=== PATIENT | male | born 1970 | race Caucasian/White ===

== ENCOUNTER 2025-04-14 22:47 | Emergency (ER) | payer MEDICAID, SELFPAY ==
[2025-04-14 22:55] VITALS: BP 158/78; PULSE 64; RESP 18; TEMP 36.6; O2SAT 97; BMI 31.1
--- NOTE | 2025-04-14 22:55 | ED.SKABFB ---
HPI - Skin/Abscess/Foreign Bdy General Chief complaint: Extremity Injury, Lower Stated complaint: warm red painful line going up rt calf Time Seen by Provider: 04/14/25 23:51 Source: patient, RN notes reviewed and old records reviewed Mode of arrival: ambulatory Limitations: no limitations History of Present Illness ED Provider: Jose ZHU narrative: 55-year-old male presents for evaluation of redness, pain and swelling to the right lower extremity. Patient reports that while watching football tonight he accidentally bumped his right mid calf in his left foot and felt pain pain When he went to look at the area he had a streaking red line going up his leg. He is concerned because he has a history of DVT about 5 years ago. He is not currently anticoagulated. 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 Denies any chest pain, shortness of breath, recent travel He has no other complaints or concerns at the time Related Data Previous Rx's ?Medication ?Instructions ?Recorded apixaban 5 mg (74 tabs) tablets in 5 mg PO BID #74 ea 04/15/25 a dose pack (Eliquis DVT-PE Treat 30D Start) Allergies Allergy/AdvReac Type Severity Reaction Status Date / Time bee pollen (BEE STINGS) Allergy Severe STOP Verified 04/14/25 22:56 BREATHING, THROAT SWELLING. Iodinated Contrast Media Allergy Severe Swelling Verified 04/14/25 23:40 (Contrast Dye) Review of Systems Constitutional: Constitutional: Denies body ache(s), Denies chills, Denies fatigue and Denies fever(s) Eyes: Eyes: Denies blurry vision ENT: Denies vertigo and Denies dizziness Cardiovascular: Cardiovascular: Denies chest pain and Denies dyspnea on exertion Respiratory: Respiratory: Denies cough and Denies dyspnea on exertion Gastrointestinal: Gastrointestinal: Denies abdominal pain, Denies nausea and Denies vomiting Musculoskeletal: Musculoskeletal: Denies back pain Integumentary/Breasts: Skin/Breast: Reports erythema Neurologic: Denies vertigo and Denies dizziness Psychiatric: Psychiatric: Denies anxiety Endocrine: Endocrine: Denies fatigue PMFSH Social History Social History Smoked in Last 30 Days: Yes Use of substances other than those prescribed or required for medical reasons: No Advance Directives: No Advance Directives Information Provided: Yes Do you have a plan to hurt others: No Plan Physical Exam Vital Signs: Vital Signs: Last Vital Signs Temp 97.8 F 04/15/25 00:53 Pulse 58 04/15/25 00:53 Resp 18 04/15/25 00:53 BP 140/86 H 04/15/25 00:53 Pulse Ox 97 04/15/25 00:53 O2 Del Method Room Air 04/15/25 00:53 BMI result Body Mass Index 31.1 Const: General: healthy appearing, comfortable, no acute distress, alert and awake Nutritional Appearance: well nourished Orientation/consciousness: patient oriented x3 HEENT: Head: Yes normocephalic and Yes atraumatic Eyes: Eyelids: Yes eyelids normal Conjunctivae: conjunctivae normal Sclerae: sclerae normal Corneas: corneas normal Pupils: Equal, round and reactive pupils present EOM: EOMs intact bilaterally Neck: Neck: Yes full ROM Resp: Effort & Inspection: normal respiratory effort, able to speak in complete sentences and not labored Skin: General skin exam: elasticity normal Neuro: General: patient oriented x3 Cranial nerves: Yes Equal, round and reactive pupils present and Yes Bilaterally intact EOM present Cognition (Neuro): normal cognition Extrem: Other: There is streaking erythema to the medial aspect of the right lower leg, about 8 cm in length. Terminating about 4 cm distal to the knee. This area is tender to palpation. Negative Homans sign Course Course Course Narrative: 55 yo male with PMH of remote DVTs/PE not on medications for 5 years related to driving and immobility here with c/o R leg ropy cord and redness R inner calf starts at scab. Denies IVDA, CP/SOB. At this time I would obtain US of RLE at bedside and ddimer suspect superficial thrombophlebitis. this is a RAPID medical screening exam the rest of the history and physical exam is to be done by the main provider. ALBAN 04/14/25 1056am Medications Administered Discontinued Medications Generic Name Dose Route Start Last Admin Trade Name Freq PRN Reason Stop Dose Admin Apixaban 10 mg 04/15/25 00:40 04/15/25 00:49 Apixaban 5 Mg Tablet PO 04/15/25 00:41 10 mg ONCE ONE Administration Medical Decision Making Medical Decision Making [facility] Narrative: 55-year-old male with a history of DVT presents for evaluation of redness, pain swelling to the right lower extremity. Point of care ultrasound was obtained with my attending, Dr. Gomez which revealed a superficial thrombophlebitis in the region of the greater saphenous vein. This was about 8 cm in length and terminating approximately 3 cm from the saphenous popliteal junction. Due to the patient's history of DVT, the length of the thrombophlebitis and naproxen may need to the deep vein system. The decision was made to start the patient on Eliquis for anticoagulation. An outpatient ultrasound ordered was placed for the patient to have a comprehensive ultrasound tomorrow morning. A referral was also placed to vascular surgery. The patient has no contraindications to anticoagulation Differential Diagnosis Differential Diagnoses: The differential diagnosis associated with the presentation includes Superficial thrombophlebitis DVT Lymphangitis Cellulitis Lab Data MDM Lab Attestation statement: I reviewed the patient's lab results. No leukocytosis, the patient has a mild microcytic anemia with a hemoglobin of 13.2 and hematocrit of 38.1. He denies any history of GI bleeding. No significant chemistry abnormalities 04/14/25 23:26 04/14/25 23:26 Labs: Lab Results 04/14/25 Range/Units 23:26 WBC 6.5 (4.8-10.8) X10*3/uL RBC 4.87 (4.60-5.80) X10*6/uL Hgb 13.2 L (14.0-18.0) g/dl Hct 38.1 L (42.0-52.0) % MCV 78.2 L (80.0-98.0) fL MCH 27.1 (27.0-33.0) pg MCHC 34.6 (31.0-36.0) g/dl RDW 13.5 (11.0-16.0) % Plt Count 165 (160-400) X10*3/uL MPV 9.5 (9.4-12.4) fL Immature Gran % (Auto) 0.3 (0.0-0.4) % Neut % (Auto) 52.0 (45-73) % Lymph % (Auto) 34.7 (20-40) % [place] % (Auto) 9.3 (2-11) % Eos % (Auto) 2.6 (0-4) % Baso % (Auto) 1.1 (0-2) % Lymph # (Auto) 2.3 (1.2-4.9) X10*3/uL [place] # (Auto) 0.6 (0.1-1.2) X10*3/uL Eos # (Auto) 0.2 (0.0-0.4) X10*3/uL Baso # (Auto) 0.1 (0.0-0.2) X10*3/uL Abs Immat Gran (auto) 0.02 (0.00-0.03) X10*3/uL Absolute Neuts (auto) 3.4 (2.0-8.3) x10*3/uL Absolute Nucleated RBC 0.000 (0.0-0.012) X10*3/uL Nucleated RBC % (auto) 0.0 (0.0-0.2) /100WBC D-Dimer High Sensitivty 371 NG/ML Sodium 136 (135-145) mmol/L Potassium 4.4 (3.3-5.1) mmol/L Chloride 104 (96-108) mmol/L Carbon Dioxide 23 (22-29) mmol/L Anion Gap 13 (12-20) BUN 17 H (9-16) mg/dL Creatinine 1.00 (0.5-1.4) mg/dL Estim Creat Clear Calc 105.8 Estimated GFR > 60 Random Glucose 117 H (60-115) mg/dL Calcium 9.3 (8.4-10.2) mg/dL Procedures Procedure Narrative Procedure Narrative: .[facility] ULTRASOUND INTERPRETATION-Limited Point of Care Venous (DVT)? The study reveals:? Impression: NO EVIDENCE OF DVT. I RECOMMENDED TO THE PATIENT? REPEAT ULTRASOUND IN ONE WEEK IF SYMPTOMS PERSIST. Indication: phlebitis of R LE Laterality: ? [X] RIGHT? Common Femoral:? -Full Compressibility: YES -Clot Seen: NO Superficial Femoral:? -Full Compressibility: YES -Clot Seen: NO Popliteal:? -Full Compressibility: YES -Clot Seen: NO Performed by: ALBAN Date: 04/15/25 Time: 1227am CPT: 87407; Reference Codes? [email or web address]://bit.ly/[email or web address]] Discharge Plan Discharge Clinical Impression: Superficial thrombophlebitis of right leg Patient Disposition: Home, Self-Care Instructions: Superficial Thrombophlebitis (ED), Phlebitis (ED) Additional Instructions: Your ultrasound does not show any DVT. However you have a superficial thrombophlebitis that seems fairly extensive and close to the deep vein system. Therefore we are treating it as a DVT so it does not get worse. Call the ultrasound department tomorrow morning at 8:00 a.m. to get a comprehensive venous ultrasound of the right lower extremity. I also sent a follow up referral to Dr. Wiseman, vascular surgery Prescriptions: New Eliquis DVT-PE Treat 30D Start 5 mg (74 tabs) tablets,dose pack 5 mg PO BID Qty: 74 0RF Referrals: Ladarius Wiseamn MD [Physician, Vascular Surgery] Referral Note: extensive superficial phlebitis. ?treat as DVT Interventions: ED Discharge Assessment Last Done: 04/15/25 00:53 Discharge Date/Time: 04/15/25 00:54 Print Language: Bahamian
[2025-04-14 23:30] LABS: Hematocrit 38.1 % (42.0-52.0); Hemoglobin 13.2 g/dl (14.0-18.0); Imm Gran Abs Auto 0.02 X10*3/uL (0.00-0.03); Imm Gran Pct Auto 0.3 % (0.0-0.4); Lymphocytes Absolute Auto 2.3 X10*3/uL (1.2-4.9); MANUAL DIFF FLAG NO; Mean Corpuscular HGB Conc 34.6 g/dl (31.0-36.0); Mean Corpuscular Hemoglobin 27.1 pg (27.0-33.0); Mean Corpuscular Volume 78.2 fL (80.0-98.0); NRBC Abs Auto 0.000 X10*3/uL (0.0-0.012); NRBC Pct Auto 0.0 /100WBC (0.0-0.2); Platelet Count 165 X10*3/uL (160-400); Red Blood Count 4.87 X10*6/uL (4.60-5.80); White Blood Count 6.5 X10*3/uL (4.8-10.8)
[2025-04-14 23:48] LABS: D Dimer High Sensitivity 371 NG/ML
[2025-04-15 00:13] LABS: Anion Gap 13 (12-20); Blood Urea Nitrogen 17 mg/dL (9-16); Calcium 9.3 mg/dL (8.4-10.2); Carbon Dioxide 23 mmol/L (22-29); Chloride 104 mmol/L (96-108); Creatinine Clr Calc Pharmacy 105.8; Estimated Glomerular Filt Rate > 60; Potassium 4.4 mmol/L (3.3-5.1); Sodium 136 mmol/L (135-145)
[2025-04-15 00:49] VITALS: BP 140/86; PULSE 58; RESP 18; TEMP 36.6; O2SAT 97
[2025-04-15 00:53] VITALS: BP 140/86; PULSE 58; RESP 18; TEMP 36.6; O2SAT 97
== END 2025-04-15 00:54 | disposition home or self-care (01) ==
PROVIDERS: Emergency Medicine; Emergency Provider Emergency Medicine
DX: I80.3 Phlebitis and thrombophlebitis of lower extremities, unspecified (principal); D64.9 Anemia, unspecified; Z86.718 Personal history of other venous thrombosis and embolism
CPT/HCPCS: 36415; 80048; 85025; 85379; 99283; 99284

== ENCOUNTER 2025-05-09 13:24 | Outpatient (AMB) | payer MEDICAID, SELFPAY ==
[2025-05-09 13:36] VITALS: BMI 31.0
--- NOTE | 2025-05-09 13:36 | MHC.OFFVIS ---
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 On blood thinners. 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 He initially presented to the emergency room on 04/14/2025 after bumping his leg while watching football, which led to the discovery of a red line and localized heat in the leg. The patient has a history of DVT and pulmonary embolism, with previous episodes occurring six to seven years ago, which required hospitalization and treatment with blood thinners for six months. He is currently on Eliquis but has limited supply remaining. The patient reports peripheral neuropathy, characterized by numbness from the ball of the foot to the toes, and poor circulation in one foot, which has been noted by the physician as poor pulses. He has a history of tobacco use, having quit for three years before recently resuming smoking, and has been identified as prediabetic. Additionally, he has a history of herniated discs, which affects his ability to walk long distances, although he can manage about half a mile on a good day and regularly climbs stairs. [facility] Social History (Updated 05/09/25 @ 13:43 by ALEXANDRE Barksdale) Patient Tobacco Use Status: Current everyday Tobacco user Cigarettes Per Day: 15 Review of Systems Const All systems reviewed & are unremarkable except as noted in HPI and below Reports no additional complaints ENT Reports Normal hearing present Card Denies chest pain, Denies chest pain at rest, Denies chest pain with activity and Denies pedal edema Resp Denies cough GI Denies abdominal pain Musc Denies abnormal gait, Denies muscle cramps and Denies radiating pain into limb Skin/Breast Denies skin ulcer and Denies wounds Neuro Reports Normal hearing present and Denies abnormal gait Psych Reports no additional complaints Physical Exam Vital Signs: BMI result Body Mass Index 31.0 Const General: cooperative, healthy appearing and comfortable Orientation/consciousness: oriented to person, oriented to place and oriented to time HEENT Head: Yes normal to inspection Neck Neck: Yes normal visual inspection Carotids: no bruits Chest Chest palpation & inspection: normal inspection of the chest Resp Effort & Inspection: normal respiratory effort and able to speak in complete sentences Auscultation: clear to auscultation bilaterally, no crackles, no rales, no rhonchi and no wheezes Cardio Rate: regular rate Rhythm: regular rhythm Heart sounds: S1 normal heart sound present and S2 normal heart sound present Bruits: no carotid bruits Peripheral pulses: Peripheral pulses 2+ throughout GI Inspection: Yes normal to inspection Skin Wounds: no wounds Hair: normal Neuro General: oriented to person, oriented to place and oriented to time Cranial nerves: Yes CN's II-XII intact bilaterally and Yes Normal hearing present Cognition (Neuro): normal cognition Motor exam (neuro): 5/5 motor strength present throughout Extrem Other: venous exam: +1 edema General: No clubbing, No cyanosis and Yes edema Psych Appearance: grossly normal Mental Status: mental status grossly normal Speech and movement: Normal speech and movement present Assessment & Plan Assessment & Plan (1) DVT (deep venous thrombosis): Code(s): I82.409 - Acute embolism and thrombosis of unspecified deep veins of unspecified lower extremity Category: Medical Qualifiers: DVT location: lower extremity Chronicity: acute Laterality: unspecified laterality Affected thrombotic vein of extremity: unspecified vein of extremity Qualified Code(s): I82.409 - Acute embolism and thrombosis of unspecified deep veins of unspecified lower extremity Plan: During the visit, I discussed the need for a repeat ultrasound of the right leg to evaluate the suspected DVT and determine the necessity of continuing anticoagulation therapy. We also plan to perform an arterial ultrasound to assess blood flow to the legs due to poor circulation. I advised the patient on the importance of quitting smoking and monitoring his prediabetic status. Orders: Orders US venous duplex LE RT Today I82.409 - Acute embolism and thrombosis of unspecified deep veins of unspecified lower extremity Coding Level of Care Code New Pt Level 4 (40353) Diagnoses Acute deep vein thrombosis (DVT) of lower extremity, unspecified laterality, unspecified vein I82.409 DVT location: lower extremity Chronicity: acute Laterality: unspecified laterality Affected thrombotic vein of extremity: unspecified vein of extremity
== END 2025-05-09 14:22 | disposition home or self-care (01) ==
LOC: HO.HVS 13:24
PROVIDERS: Visit Provider Surgery Vascular Surgery
DX: I82.409 Acute embolism and thrombosis of unspecified deep veins of unspecified lower extremity (principal)
CPT/HCPCS: 99204

== ENCOUNTER → 2025-05-09 13:24 | Outpatient (BNVA) | payer MEDICAID, SELFPAY | PROVIDERS: Visit Provider Surgery Vascular Surgery | DX: I82.401 Acute embolism and thrombosis of unspecified deep veins of right lower extremity (principal) | CPT/HCPCS: 99202 ==

== ENCOUNTER 2025-05-12 13:31 | Outpatient (REF) | payer OTHER, SELFPAY ==
--- NOTE | ~2025-05-12 | US_ITS ---
EXAMINATION: US TRIPLEX LOWER EXTREMITY, RIGHT CLINICAL INFORMATION: Right lower extremity pain COMPARISON: None available. TECHNIQUE: Color-flow triplex imaging with spectral analysis and compression Doppler were performed on the right lower extremity. FINDINGS: Respiratory variation, normal compression and augmented flow are noted throughout the right lower extremity. The visualized common femoral vein, superficial femoral vein, profunda femoral vein, popliteal vein and midcalf peroneal and posterior tibial venous segments show no evidence of deep venous thrombosis. US/US venous duplex LE RT IMPRESSION: No evidence of deep venous thrombosis involving the right lower extremity. Electronically signed by: Celso Swift MD 05/12/2025 02:20 PM EDT
== END 2025-05-12 13:32 | disposition home or self-care (01) ==
LOC: HO.US 13:31
PROVIDERS: PCP Internal Medicine; Visit Provider Surgery Vascular Surgery
DX: I82.401 Acute embolism and thrombosis of unspecified deep veins of right lower extremity (principal)
CPT/HCPCS: 93971

== ENCOUNTER → 2025-05-12 13:33 | Outpatient (BNV) | payer OTHER, SELFPAY | PROVIDERS: PCP Internal Medicine; Visit Provider Radiology Diagnostic Radiology | DX: M79.661 Pain in right lower leg (principal) | CPT/HCPCS: 93971 ==

== ENCOUNTER 2025-05-17 22:18 | Emergency (ER) | payer OTHER, SELFPAY ==
--- NOTE | ~2025-05-17 | XR_ITS ---
CLINICAL HISTORY: palpitations 2 view chest x-ray Comparison: None provided Findings: The lungs are clear. Normal size heart. No acute fracture. IMPRESSION: 1. No acute findings. This document has been electronically signed by: Zahra Vigil MD on 05/18/2025 00:04:42
[2025-05-17 22:24] VITALS: BP 167/88; PULSE 68; RESP 18; TEMP 36.7; O2SAT 97; BMI 32.0
--- NOTE | 2025-05-17 22:26 | ED_ITS ---
HPI - General Adult General Chief complaint: Chest Pain Stated complaint: increased BP; heartburn, pulse rate 46 Time Seen by Provider: 05/17/25 23:01 Source: patient, RN notes reviewed and old records reviewed Mode of arrival: ambulatory Limitations: no limitations History of Present Illness ED Provider: Jose HPI narrative: 55-year-old male with past medical history significant for GERD, DVT on Eliquis presents for evaluation of burning in his chest. Patient reports that he felt symptoms consistent with his heartburn around 930 or 10. He reports that he otherwise felt well did not have any significant chest pain. He felt as though he can ?feel my heartbeat in my throat. ? he took a Pepcid in his symptoms resolved. He denies any history of coronary artery disease He is currently on Eliquis for superficial thrombophlebitis that was fairly extensive He is requesting a refill of his Eliquis prescription, as he only has 6 pills left He has no shortness of breath, cough Related Data Home Medications ?Medication ?Instructions ?Recorded ?Confirmed buprenorphine 100 mg/0.5 mL 100 mg subcut QMONTH 05/09 solution,exten.rel.subcutaneous syringe (Sublocade) Previous Rx's ?Medication ?Instructions ?Recorded apixaban 5 mg (74 tabs) tablets in 5 mg PO BID #74 ea 04/15/25 a dose pack (Eliquis DVT-PE Treat 30D Start) apixaban 5 mg tablet (Eliquis) 5 mg PO BID #60 tabs Allergies Allergy/AdvReac Type Severity Reaction Status Date / Time bee pollen (BEE STINGS) Allergy Severe STOP Verified 05/17/25 22:30 BREATHING, THROAT SWELLING. Iodinated Contrast Media Allergy Severe Swelling Verified 05/17/25 22:30 (Contrast Dye) Review of Systems 2 Constitutional: Constitutional: Denies chills, Denies frequent falls and Denies headache(s) ENT: Denies headache(s) Cardiovascular: Cardiovascular: Denies chest pain Gastrointestinal: Gastrointestinal: Reports abdominal pain, Reports heartburn, Denies nausea and Denies vomiting Neurologic: Denies frequent falls and Denies headache(s) [facility] Social History Social History (Updated 05/09/25 @ 13:43 by ALEXANDRE Barksdale) Patient Tobacco Use Status: Current everyday Tobacco user Cigarettes Per Day: 15 Advance Directives: No Advance Directives Information Provided: No Physical Exam ED Vital Signs: Vital Signs - 24 hr 05/17/25 22:24 Temperature 98.0 F Pulse Rate 68 Respiratory Rate 18 Blood Pressure 167/88 H Pulse Oximetry 97 Oxygen Delivery Method Room Air BMI result Body Mass Index 32.0 Const General: healthy appearing, comfortable, no acute distress, alert and awake Nutritional Appearance: well nourished Orientation/consciousness: patient oriented x3 HENMT Head: Yes normocephalic and Yes atraumatic Eyes Eyelids: Yes eyelids normal Conjunctivae: conjunctivae normal Sclerae: sclerae normal Corneas: corneas normal Pupils: Equal, round and reactive pupils present EOM: EOMs intact bilaterally Neck Neck: Yes full ROM Resp Effort & Inspection: normal respiratory effort, able to speak in complete sentences, no audible wheezes and not labored Auscultation: clear to auscultation bilaterally Cardio Rate: regular rate Rhythm: regular rhythm GI Inspection: No distended Palpation (GI): Soft to palpation, not firm, nontender, no guarding and not rigid Skin General skin exam: elasticity normal Neuro General: patient oriented x3 Cranial nerves: Yes Equal, round and reactive pupils present and Yes Bilaterally intact EOM present Cognition (Neuro): normal cognition Extrem Other: Moving all extremities well without any obvious deformities Course Course Course Narrative: This is a RME preformed in triage by Ileana Metzger PA-C. Date: 05/17/2025, time 1030 pm. Patient presents with concerns of having low pulse while at home while lying down. He reports that it was approximately 46. When he was lying down he felt like he could feel his pulse in his throat. He is also endorsing what he describes as heartburn for the past week intermittently. History of VTE in his lower extremity treated for approximately 24 days he only has 6 pills left and no primary care to continue this medication. He does not feel short of breath. No headaches dizziness no fevers no chills no coughing. Work UP: cardiac labs EKG CXR, he will need RX script for continued eliquis for VTE, only 6 days left of first 30 days of tx. PCP appt in Jun. Will defer full ROS and PE to treating provider. Patient will continued to be monitored in the interim. Medical Decision Making Medical Decision Making MDM Narrative: 55-year-old male past medical history as above presents for evaluation of heartburn symptoms with burning in his chest. His symptoms did resolve with Pepcid likely reassuring for a diagnosis of heartburn. His EKG is nonischemic, chest x-ray is clear. He had labs drawn that were reassuring, his troponin was negative initially and a repeat was drawn 2-1/2 hours after his symptoms started which was also negative and he rules out for ACS. I did refill his Eliquis as requested as he should be on it for a minimum of 6 weeks and likely up to 90 days. Differential Diagnosis Differential Diagnoses: The differential diagnosis associated with the presentation includes Chest pain GERD ACS Bronchitis Costochondritis Chest wall pain Admission/Observation Consideration of admission/observation: Escalation of care including admission/observation considered Lab Data MDM Lab Attestation statement: I reviewed the patient's lab results. No leukocytosis, the patient has a very mild anemia but improved when compared to his labs from month ago. No evidence of active bleeding. Platelet count is normal, no significant electrolyte abnormalities warranting intervention. Renal function normal, troponin negative x2 05/17/25 22:41 05/17/25 22:41 Labs: Lab Results 05/17/25 05/18/25 Range/Units 22:41 00:14 WBC 6.4 (4.8-10.8) X10*3/uL RBC 5.08 (4.60-5.80) X10*6/uL Hgb 13.8 L (14.0-18.0) g/dl Hct 40.6 L (42.0-52.0) % MCV 79.9 L (80.0-98.0) fL MCH 27.2 (27.0-33.0) pg MCHC 34.0 (31.0-36.0) g/dl RDW 13.6 (11.0-16.0) % Plt Count 191 (160-400) X10*3/uL MPV 9.7 (9.4-12.4) fL Immature Gran % (Auto) 0.2 (0.0-0.4) % Neut % (Auto) 54.1 (45-73) % Lymph % (Auto) 32.4 (20-40) % [place] % (Auto) 8.7 (2-11) % Eos % (Auto) 3.4 (0-4) % Baso % (Auto) 1.2 (0-2) % Lymph # (Auto) 2.1 (1.2-4.9) X10*3/uL [place] # (Auto) 0.6 (0.1-1.2) X10*3/uL Eos # (Auto) 0.2 (0.0-0.4) X10*3/uL Baso # (Auto) 0.1 (0.0-0.2) X10*3/uL Abs Immat Gran (auto) 0.01 (0.00-0.03) X10*3/uL Absolute Neuts (auto) 3.5 (2.0-8.3) x10*3/uL Absolute Nucleated RBC 0.000 (0.0-0.012) X10*3/uL Nucleated RBC % (auto) 0.0 (0.0-0.2) /100WBC Sodium 138 (135-145) mmol/L Potassium 4.4 (3.3-5.1) mmol/L Chloride 103 (96-108) mmol/L Carbon Dioxide 26 (22-29) mmol/L Anion Gap 13 (12-20) BUN 12 (9-16) mg/dL Creatinine 1.07 (0.5-1.4) mg/dL Estim Creat Clear Calc 100.2 Estimated GFR > 60 Random Glucose 122 H (60-115) mg/dL Calcium 9.8 (8.4-10.2) mg/dL Magnesium 2.0 (1.6-2.6) mg/dL Total Bilirubin 0.7 (0.0-1.0) mg/dL AST 37 (5-37) U/L ALT 36 (0-40) U/L Alkaline Phosphatase 58 (39-117) U/L Troponin I High Sens < 2.7 < 2.7 (<3.5-35.0) ng/L Total Protein 7.6 (6.5-8.0) g/dL Albumin 4.4 (3.5-5.0) g/dL Independent Interpretation I performed an independent interpretation of an: EKG (Normal sinus rhythm with a rate of [address] changes) and Plain X-Ray Interpretation: No focal infiltrates or pleural effusion Radiology Impression Discussion of test interpretation with radiology: I have reviewed the radiologist's reading. Radiologist Impression: Findings: The lungs are clear. Normal size heart. No acute fracture. IMPRESSION: 1. No acute findings. This document has been electronically signed by: Zahra Vigil MD on 05/18/2025 00:04:42 Discharge Plan Discharge Clinical Impression: Chest pain Patient Disposition: Home, Self-Care Instructions: GERD (Gastroesophageal Reflux Disease) (ED) Additional Instructions: Your workup in the ER today was reassuring. This includes your blood work, repeat blood work, EKG, and chest x-ray. Your symptoms were likely related to GERD. I did send a refill for your Eliquis to your pharmacy. You may continue taking that until either your primary doctor or vascular surgeon has you stop it Prescriptions: New Eliquis 5 mg tablet 5 mg PO BID Qty: 60 0RF No Action Eliquis DVT-PE Treat 30D Start 5 mg (74 tabs) tablets,dose pack 5 mg PO BID Qty: 74 0RF Sublocade 100 mg/0.5 mL solution, extended rel syringe 100 mg subcut QMONTH Print Language: Nepalese
--- NOTE | 2025-05-17 22:29 | ECG_ITS ---
Test Reason : HIGH BP LOW PULSE Blood Pressure : */* mmHG Vent. Rate : 73 BPM Atrial Rate : 73 BPM P-R Int : 172 ms QRS Dur : 94 ms QT Int : 382 ms P-R-T Axes : 66 36 42 degrees QTcB Int : 420 ms Normal sinus rhythm Normal ECG No previous ECGs available Referred By: Ileana Metzger Electronically Signed By: DENIA LUNSFORD MD
[2025-05-17 22:46] LABS: MANUAL DIFF FLAG NO
[2025-05-17 22:51] LABS: Hematocrit 40.6 % (42.0-52.0); Hemoglobin 13.8 g/dl (14.0-18.0); Imm Gran Abs Auto 0.01 X10*3/uL (0.00-0.03); Imm Gran Pct Auto 0.2 % (0.0-0.4); Lymphocytes Absolute Auto 2.1 X10*3/uL (1.2-4.9); Mean Corpuscular HGB Conc 34.0 g/dl (31.0-36.0); Mean Corpuscular Hemoglobin 27.2 pg (27.0-33.0); Mean Corpuscular Volume 79.9 fL (80.0-98.0); NRBC Abs Auto 0.000 X10*3/uL (0.0-0.012); NRBC Pct Auto 0.0 /100WBC (0.0-0.2); Platelet Count 191 X10*3/uL (160-400); Red Blood Count 5.08 X10*6/uL (4.60-5.80); White Blood Count 6.4 X10*3/uL (4.8-10.8)
[2025-05-17 23:01] LABS: Alanine Aminotransferase 36 U/L (0-40); Albumin Level 4.4 g/dL (3.5-5.0); Alkaline Phosphatase 58 U/L (39-117); Anion Gap 13 (12-20); Aspartate Amino Transferase 37 U/L (5-37); Blood Urea Nitrogen 12 mg/dL (9-16); Calcium 9.8 mg/dL (8.4-10.2); Carbon Dioxide 26 mmol/L (22-29); Chloride 103 mmol/L (96-108); Creatinine Clr Calc Pharmacy 100.2; Estimated Glomerular Filt Rate > 60; Magnesium 2.0 mg/dL (1.6-2.6); Potassium 4.4 mmol/L (3.3-5.1); Sodium 138 mmol/L (135-145); Total Protein 7.6 g/dL (6.5-8.0)
[2025-05-17 23:08] LABS: Troponin-I High Sensitivity < 2.7 ng/L (<3.5-35.0)
[2025-05-18 00:37] LABS: Troponin-I High Sensitivity < 2.7 ng/L (<3.5-35.0)
[2025-05-18 00:52] VITALS: BP 127/80; PULSE 61; RESP 14; TEMP 36.8; O2SAT 97
[2025-05-18 00:58] VITALS: PULSE 61
[2025-05-18 00:59] VITALS: BP 127/80; PULSE 61; RESP 14; TEMP 36.8; O2SAT 97
== END 2025-05-18 00:59 | disposition home or self-care (01) ==
PROVIDERS: Physician Assistant; Physician Assistant Medical; Emergency Provider Emergency Medicine
DX: R07.9 Chest pain, unspecified (principal); Z86.718 Personal history of other venous thrombosis and embolism; Z79.01 Long term (current) use of anticoagulants; Z91.030 Bee allergy status; Z91.041 Radiographic dye allergy status
CPT/HCPCS: 36415; 71046; 80053; 83735; 84484; 85025; 93005; 99283; 99285

== ENCOUNTER → 2025-05-17 22:29 | Outpatient (BNV) | payer OTHER, SELFPAY | PROVIDERS: Emergency Provider Emergency Medicine; Visit Provider Radiology Diagnostic Radiology | DX: R00.2 Palpitations (principal) | CPT/HCPCS: 71046 ==

== ENCOUNTER → 2025-05-17 22:29 | Outpatient (BNV) | payer OTHER, SELFPAY | PROVIDERS: Emergency Provider Emergency Medicine; Visit Provider Internal Medicine Cardiovascular Disease | DX: R03.0 Elevated blood-pressure reading, without diagnosis of hypertension (principal); R00.1 Bradycardia, unspecified | CPT/HCPCS: 93010 ==

== ENCOUNTER 2025-06-20 13:00 | Outpatient (AMB) | payer OTHER, SELFPAY ==
--- NOTE | 2025-06-20 13:05 | MHC.OFFVIS ---
Intake Visit Reasons: follow up US 05/12/25 Intake Note: Patient presents for follow up venous insufficiency. Ultrasound was performed on 05/12/25. No complaints. Accompanied by: Self / Same As Patient Allergies bee pollen (BEE STINGS) Allergy (Severe, Verified 06/20/25 13:09) STOP BREATHING, THROAT SWELLING. Iodinated Contrast Media (Contrast Dye) Allergy (Severe, Verified 06/20/25 13:09) Swelling [facility] follow up US 05/12/25: Details: The patient is a 55-year-old male presenting for follow-up after being treated for superficial thrombophlebitis. He initially presented to the emergency room on April 14, 2025, with a history of deep vein thrombosis and developed superficial thrombophlebitis after bumping his leg. Due to the proximity of the thrombophlebitis to the deep veins, he was started on Eliquis. A repeat ultrasound was performed on May 12, 2025, which was negative for deep vein thrombosis. The patient reports a history of recurrent phlebitis, having experienced multiple episodes in the past, including six occurrences at one time. He also has a history of pulmonary embolism, which was attributed to prolonged periods of driving. The patient has a history of substance use disorder, specifically with cocaine, and has been clean for almost four years following incarceration. He inquired about the potential role of his past intravenous drug use in his current condition, acknowledging that injectables can contribute to clot formation. [facility] Social History (Updated 05/09/25 @ 13:43 by ALEXANDRE Barksdale) Patient Tobacco Use Status: Current everyday Tobacco user Cigarettes Per Day: 15 Review of Systems Const Reports as per HPI ENT Reports no additional complaints Card Denies chest pain, Denies chest pain at rest and Denies chest pain with activity Resp Denies chest congestion and Denies cough GI Reports no additional complaints Musc Details: pain over varicosities, aching of lower extremities, swelling, cramping, heaviness and tiredness, itching Denies abnormal gait Skin/Breast Reports pruritus and Denies wounds Neuro Reports no additional complaints and Denies abnormal gait Psych Denies no additional complaints Physical Exam Const General: cooperative, healthy appearing and comfortable Orientation/consciousness: oriented to person, oriented to place and oriented to time Neck Carotids: no bruits Chest Chest palpation & inspection: normal inspection of the chest and normal palpation of entire chest wall Resp Effort & Inspection: normal respiratory effort and able to speak in complete sentences Cardio Rate: regular rate Heart sounds: S1 normal heart sound present and S2 normal heart sound present Peripheral pulses: Peripheral pulses 2+ throughout GI Inspection: Yes normal to inspection Skin Other: +2 edema, large rope-like varicosities greater than 4 mm CEAP Classification C4 - skin color changes Ep - Etiology Primary As - superficial veins P - reflux General skin exam: dry skin Neuro General: oriented to person, oriented to place and oriented to time Extrem Right lower extremity: full ROM, normal capillary refill and edema Left lower extremity: full ROM, normal capillary refill and edema Psych Mental Status: mental status grossly normal Results Reviewed Results Reviewed: Ultrasound dated 05/12/2025 demonstrates no evidence of DVT Assessment & Plan Assessment & Plan (1) DVT (deep venous thrombosis): Code(s): I82.409 - Acute embolism and thrombosis of unspecified deep veins of unspecified lower extremity Category: Medical Qualifiers: DVT location: lower extremity Affected thrombotic vein of extremity: unspecified vein of extremity Chronicity: acute Laterality: unspecified laterality Qualified Code(s): I82.409 - Acute embolism and thrombosis of unspecified deep veins of unspecified lower extremity Plan: I discussed with the patient the findings of the recent ultrasound, which were negative for deep vein thrombosis, and the plan to discontinue Eliquis after completing the current course. We also talked about the potential impact of past intravenous drug use on clot formation and the plan for a follow-up ultrasound in three months to evaluate venous function. (2) Varicose veins of right lower extremity with inflammation: Code(s): I83.11 - Varicose veins of right lower extremity with inflammation Category: Medical Plan: In short patient may have an element of venous insufficiency. Due to the underlying DVT and significant large varicosities there is clearly reflux. I have taken the liberty of ordering venous insufficiency testing in a proximally 3 months and patient will follow up with us after testing. In addition we did discuss routine conservative measures including compression, elevation, exercise. Thank you for allowing us to assist in his care. If there are any questions or concerns please do not hesitate to contact us. Orders: Orders US venous duplex LE BI 3 Months I83.11 - Varicose veins of right lower extremity with inflammation Coding Level of Care Code New Pt Level 4 (24190) Diagnoses Acute deep vein thrombosis (DVT) of lower extremity, unspecified laterality, unspecified vein I82.409 DVT location: lower extremity Affected thrombotic vein of extremity: unspecified vein of extremity Chronicity: acute Laterality: unspecified laterality Varicose veins of right lower extremity with inflammation I83.11
== END 2025-06-20 13:55 | disposition home or self-care (01) ==
LOC: HO.HVS 13:01
PROVIDERS: Visit Provider Surgery Vascular Surgery
DX: I82.409 Acute embolism and thrombosis of unspecified deep veins of unspecified lower extremity (principal); I83.11 Varicose veins of right lower extremity with inflammation
CPT/HCPCS: 99214

== ENCOUNTER → 2025-06-20 13:00 | Outpatient (BNVA) | payer OTHER, SELFPAY | PROVIDERS: Visit Provider Surgery Vascular Surgery | DX: I83.11 Varicose veins of right lower extremity with inflammation (principal); F17.210 Nicotine dependence, cigarettes, uncomplicated; Z86.72 Personal history of thrombophlebitis; Z79.01 Long term (current) use of anticoagulants | CPT/HCPCS: 99212 ==

== ENCOUNTER 2025-06-27 09:37 | Outpatient (AMB) | payer OTHER, SELFPAY ==
--- NOTE | 2025-06-27 09:59 | MHC.PC.OV ---
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 [facility] Medical records have been requested and have not received. Requesting ENT for left ear hearing loss. 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 Iodinated Contrast Media (Contrast Dye) Allergy (Severe, Verified 06/27/25 09:59) Swelling Medication List - Last Reconciled 06/27/25 by Radha Reyes MD buprenorphine ER (Sublocade) 100 mg subcut QMONTH escitalopram oxalate (Lexapro) 20 mg (2 x 10 mg) PO DAILY Tobacco use date assessed: 06/27/25 Dental Screening Dental Screen Date: 06/27/25 Did you have a dental visit in the last 12 months?: No Did you have a dental problem in the last 6 months where you did not have access to dental care?: No Was dental information given to patient?: No (Dentures) HPI HPI Comments History of Present Illness Details The patient is a 55-year-old male with PMH of DVT s/p Eliquiss treatment, varicose vein, PAD, neuropathy, OUD on Suboxone presenting to establish primary care. The patient reports a history of depression and is currently taking Lexapro, which was prescribed in skilled nursing. He feels the medication is not very effective and is seeking a non-addictive alternative. He has an upcoming appointment with a psychiatrist on July 12. He has a history of opioid use disorder, including 10 years of IV drug use, and has been in recovery for almost four years. He is maintained on a Suboxone shot, which he finds very effective and is managed by another office. The patient complains of bilateral foot numbness, describing the sensation as walking on cotton and feeling like there is cotton between his toes. He also reports chronic pain in his knees and lower back, noting a history of herniated discs from his neck down. He has had a recent sharp pain in the side of his back. 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 This issue has returned, causing a constant, malodorous discharge from his left ear, for which he typically uses Cipro drops. He has a history of perforated left eardrum, hearing loss in that ear, and a history of having tubes in his ears throughout his life. His past medical history is significant for recurrent blood clots. About 8 years ago, he was hospitalized for a pulmonary embolism and had deep vein thrombosis in both legs. He was previously treated with Eliquis but is no longer on anticoagulation. A vascular doctor advised him to wear compression socks, which he does. For health maintenance, he received a flu shot and COVID vaccine in August or September of this year while incarcerated. He is unsure of his last tetanus shot. Recent non-fasting blood work showed an elevated glucose level. He also reports having brown skin lesions (warts) on his body that he wants removed. [facility] Medical History (Updated 06/27/25 @ 11:06 by Radha Reyes MD) Healthcare maintenance Surgical History (Updated 06/27/25 @ 10:09 by ALEXANDRE Murphy) History of tooth extraction History of ear surgery Family History (Updated 06/27/25 @ 10:09 by ALEXANDRE Murphy) Other Substance use disorder Social History (Updated 06/27/25 @ 10:09 by ALEXANDRE Murphy) Housing: House Alcohol intake: never Patient Tobacco Use Status: Current everyday Tobacco user Tobacco use type: Cigarette Cigarette Packs Per Day: 0.5 Cigarettes Per Day: 7 e-Cigarette/Vaping Use: Never Used Second Hand Smoke Exposure: Yes service: No Current occupational status: disabled Cognitive needs: Yes (Cane) Hearing needs: No Vision needs: Yes (Glasses) Questionnaire PHQ-9 Over the last 2 weeks, how often have you been bothered by any of the following problems? 1. Little interest or pleasure in doing things: not at all 2. Feeling down, depressed, or hopeless: several days 3. Trouble falling or staying asleep, or sleeping too much: several days 4. Feeling tired or having little energy: not at all 5. Poor appetite or overeating: not at all 6. Feeling bad about yourself - or that you are a failure or have let yourself or your family down: not at all 7. Trouble concentrating on things, such as reading the newspaper or watching television: not at all 8. Moving or speaking so slowly that other people could have noticed. Or the opposite - being so fidgety or restless that you have been moving around a lot more than usual: not at all 9. Thoughts that you would be better off or of hurting yourself in some way: not at all Total score: 2 Depression Screening Interpretation: Positive Depression Screening Follow-up: Existing condition and In treatment (Increased his dose of Lexapro to 20 mg. ) Depression Screening Done: Yes Source: Developed by Drs. Domingo Mcadams, Priscilla Bentley, Lanre Centeno and colleagues, with an educational lucy from [facility]. Thrive Questionnaire Date Thrive assessed: 06/20/25 I am a: Patient What is your living situation today?: I have a steady place to live Within the past 12 months, did the food you bought not last and you didn't have the money to get more?: Sometimes True Within the past 12 months, did you worry whether your food would run out before you got money to buy more?: Never true Do you have trouble paying for medicines?: No Do you have trouble getting transportation to medical appointments?: No Do you have trouble paying your heating and electricity bill?: No Do you have trouble taking care of your child, family member or friend?: No Do you have trouble with day-to-day activities such as bathing, preparing meals, shopping, managing finances, etc.?: Yes Are you currently unemployed and looking for a job?: Yes Are you interested in more education?: No Please select the resources that you would like help with: None Currently or been in a relationship where the following occur: I choose not to answer THRIVE Score: 1 AUDIT C Alcohol Use Questionnaire (AUDIT-C) 1. How often do you have a drink containing alcohol?: Never 3. How often do you have six or more drinks on one occasion?: Never Total Score: 0 LASHA-7 AMB Questionnaire LASHA-7 Date LASHA - 7 assessed: 06/27/25 Feeling nervous, anxious, or on edge: 0 = Not at all Not being able to stop or control worryin = Not at all Worrying too much about different things: 1 = Several days Trouble relaxin = Several days Being so restless that it is hard to sit still: 0 = Not at all Becoming easily annoyed or irritable: 0 = Not at all Feeling afraid as if something awful might happen: 0 = Not at all Total LASHA-7 score (0-4 normal; 5-9 mild; 10-14 moderate; 15-21 severe): 2 Source: Developed by Drs. Domingo Mcadams, Priscilla Bentley, Lanre Centeno and colleagues, with an educational lucy from [facility]. Review of Systems Const Details: As per HPI. Physical exam (Primary Care) Vital Signs: Last Vital Signs Temp 96.9 F 06/27/25 10:00 Pulse 57 06/27/25 10:00 BP 130/88 06/27/25 10:00 Pulse Ox 96 06/27/25 10:00 Oxygen Delivery Method Room Air 06/27/25 10:00 BMI result Body Mass Index 32.8 Tobacco/Smoking Status: Tobacco use Status Tobacco use date assessed 06/27/25 06/27/25 10:11 Patient Tobacco Use Status Current everyday Tobacco 06/27/25 10:11 Tobacco use type Cigarette 06/27/25 10:11 e-Cigarette/Vaping Use Never Used 06/27/25 10:11 PHQ-9: PHQ-9 Score PHQ-9: Total score 2 06/27/25 10:28 Depression Screening Interpretation: Positive Depression Screening Follow-up: Existing condition and In treatment (Increased his dose of Lexapro to 20 mg. ) Thrive Assessment: Date of Thrive Assessment Date Thrive assessed 06/20/25 06/27/25 10:11 Currently or been in a relationship where the following occur: I choose not to answer Const Other: Pertinent findings are in BOLD GENERAL APPEARANCE NAD, activity normal for age, well developed/ well nourished, no cyanosis, pallor, or diaphoresis. EYES lids/conjunctiva normal. EARS/NOSE/THROAT Mucous membranes moist, nares normal, lips/teeth normal uvula midline without oral pharyngeal erythema, exudate or swelling TMs normal bilaterally. No lymphangitis/lymphedema. Right eardrum scars, no perforation. Left ear with no changes. HEAD/NECK normocephalic atraumatic, no facial trauma, neck is supple. RESPIRATORY respiratory effort normal, speaks in full sentences, no tripod position, no accessory muscle use. Lungs clear to auscultation without rhonchi, wheezes, rales CARDIAC Regular rate and rhythm, no edema. ABDOMINAL Soft, ND/NT. No evidence of fluid wave. No pulsatile masses on exam, rebound tenderness, Coleman sign or pain over Mcburney's point. MUSCLES/EXTREMITIES No abnormal range of motion, no swelling. SKIN Warm, pink and dry. No rashes, dermatoses, petechiae or lesions. Wats on the patient chest. NEUROLOGICAL Speech is clear and appropriate. Normal level of consciousness. Gait and coordination are normal. 5/5 strength in all extremities. PSYCH Normal mood and affect. Judgement/competence is appropriate Office Procedures Flu Questionnaire Does the patient have a severe egg allergy?: No Does the patient have severe life threatening allergies?: No Does the patient have a fever or illness today?: No Has the patient ever had Guillain-Alma Syndrome?: No Has the patient ever had any past reaction to a flu shot?: No Immunizations Fluarix [id number] (PF) 45 mcg (15 mcg x 3)/0.5 mL IM syringe Performing Provider: Radha Reyes MD Performing Location: [facility] Administered by: Cheryl Camargo CMA on 06/27/25 10:45 Dose Route Admin Location Dispensed Lot Number Expiration Date [facility] Property Inspector 0.5 mL IM Right Deltoid 0.5 mL [id number] 02/06/26 [id number] [employer] VIS Given Date VIS Provided VIS Publication Date 06/27/25 Single Vaccine 24 Eligibility Eligibility Date Funding Source Not [facility] Eligible 06/27/25 Private Boostrix Tdap 2.5 Lf unit-8 mcg-5 Lf/0.5 mL intramuscular syringe Performing Provider: Radha Reyes MD Performing Location: [facility] Administered by: Cheryl Camargo CMA on 06/27/25 10:45 Dose Route Admin Location Dispensed Lot Number Expiration Date [employer] Property Inspector 0.5 mL IM Right Deltoid 0.5 mL [id number] 01/20/28 [id number] [employer] Total Dispensed Waste 0.5 mL 0 % VIS Given Date VIS Provided VIS Publication Date 06/27/25 Single Vaccine 21 Eligibility Eligibility Date Funding Source Not [facility] Eligible 06/27/25 Private Coding Level of Care Code New Pt Level 4 (32770) New Pt Prev Care 40-64y(17836) Diagnoses Neuropathy G62.9 Perforation of right tympanic membrane H72.91 Laterality: right Viral warts, unspecified type B07.9 Viral wart type: unspecified viral wart Healthcare maintenance Z00.00 Chronic midline low back pain without sciatica M54.50; G89.29 Chronicity: chronic Back pain laterality: midline Sciatica presence: without sciatica Chronic pain of both knees M25.561; M25.562; G89.29 Chronicity: chronic Laterality: bilateral Tobacco use disorder F17.200 Mild episode of recurrent major depressive disorder F33.0 Major depression recurrence: recurrent Active/Remission status: currently active Major depression episode severity: mild Time Spent (min) 45 Assessment & Plan Assessment & Plan (1) Neuropathy: Code(s): G62.9 - Polyneuropathy, unspecified Category: Medical Plan: - Refer to Neurology for further evaluation and management of bilateral foot numbness. - B12, folate and A1C ordered. (2) Tympanic membrane perforation: Code(s): H72.90 - Unspecified perforation of tympanic membrane, unspecified ear Category: Medical Qualifiers: Laterality: right Qualified Code(s): H72.91 - Unspecified perforation of tympanic membrane, right ear Plan: - Refer to an ENT specialist for evaluation of chronic left ear infection, discharge, and history of a recurrent cyst. - Deferring prescription of antibiotic eardrops at this time as the physical exam did not show signs of an active infection. (3) Warts: Code(s): B07.9 - Viral wart, unspecified Category: Medical Qualifiers: Viral wart type: unspecified viral wart Qualified Code(s): B07.9 - Viral wart, unspecified Plan: - Refer to Dermatology for evaluation and discussion of removal options for multiple skin lesions on the chest and back. (4) Healthcare maintenance: Code(s): Z00.00 - Encounter for general adult medical examination without abnormal findings Category: Medical Plan: CBC, CMP, Lipid panel, A1C, TSH w T4, vit D. Ordered. Shingles 2 doses when >50 yo. Next visit. COVID: two doses. Done. Pneumococcal: >50 yo. 18-49 with CKD, lung disease, weakened immune system, Heart disease, DM, cochlear implant. Next visit. Flu vaccine: Today. Tdap: every 10 years. Today. Colonoscopy: 45-75. AAA: 65 -75. At [address]. CT lun - 80. Ordered. PSA: 50 -70 every two years. Ordered. HIV: Done recently. Patient will bring the results. HCV: Done recently. Patient will bring the results. (5) Low back pain: Code(s): M54.50 - Low back pain, unspecified Category: Medical Qualifiers: Chronicity: chronic Back pain laterality: midline Sciatica presence: without sciatica Qualified Code(s): M54.50 - Low back pain, unspecified; G89.29 - Other chronic pain Plan: - Order X-rays of the lower back and bilateral knees as the initial step in diagnostic workup. - An MRI will be considered pending the results of the X-rays. (6) Knee pain: Code(s): M25.569 - Pain in unspecified knee Category: Medical Qualifiers: Chronicity: chronic Laterality: bilateral Qualified Code(s): M25.561 - Pain in right knee; M25.562 - Pain in left knee; G89.29 - Other chronic pain Plan: - Order X-rays of the lower back and bilateral knees as the initial step in diagnostic workup. - An MRI will be considered pending the results of the X-rays. (7) Tobacco use disorder: Code(s): F17.200 - Nicotine dependence, unspecified, uncomplicated Category: Medical Plan: Pulmonology referral for CT screening. (8) MDD (major depressive disorder): Code(s): F32.9 - Major depressive disorder, single episode, unspecified Category: Medical Qualifiers: Major depression recurrence: recurrent Active/Remission status: currently active Major depression episode severity: mild Qualified Code(s): F33.0 - Major depressive disorder, recurrent, mild Plan: - Increase Lexapro from 10 mg to 20 mg daily to assess for improved efficacy. - The patient was counseled on potential side effects, including erectile dysfunction and anorgasmic ejaculation. - The patient will continue with his plan to see a psychiatrist on July 12 for further management. Plan I introduced myself as the patient's new primary care physician and established that the visit was for him to establish care after a long period without consistent medical oversight. We discussed his multiple health concerns. For his depression, I recommended increasing his Lexapro to 20 mg and advised him of potential side effects, such as erectile dysfunction. I acknowledged his upcoming psychiatry appointment as a positive step. Regarding his peripheral neuropathy, chronic pain, ear issues, and skin lesions, I explained the rationale for referrals to neurology, ENT, dermatology, and pulmonology (for lung cancer screening). I explained that for his back and knee pain, we would start with X-rays before considering an MRI. After examining his ears and noting the swelling which would impede eardrops, I deferred prescribing them and reinforced the importance of the ENT follow-up. We had a detailed discussion about weight loss and diet. I outlined the importance of diet over physical activity initially and recommended avoiding sugar, dairy, red meat, and bread, suggesting healthier alternatives. The patient's history of opioid addiction was discussed, and I affirmed his decision to avoid addictive medications. I ordered fasting labs and recommended he receive influenza and Tdap vaccines, which were administered. I advised him to follow up in three months to review the results of his workup. Orders: Orders Hemoglobin A1c Today Z00.00 - Encounter for general adult medical examination without abnormal findings IRON PROFILE Today Z00.00 - Encounter for general adult medical examination without abnormal findings Lipid Panel Today Z00.00 - Encounter for general adult medical examination without abnormal findings Reticulocyte Count Today D64.9 - Anemia, unspecified, Z00.00 - Encounter for general adult medical examination without abnormal findings Vitamin D 25-OH Total Today Z00.00 - Encounter for general adult medical examination without abnormal findings Prostate Specific Antigen Today Z00.00 - Encounter for general adult medical examination without abnormal findings XR Knee Alexandru 1or 2V Today M25.569 - Pain in unspecified knee XR lumbar spine 2-3V Today M25.569 - Pain in unspecified knee, M54.50 - Low back pain, unspecified Comprehensive Met. Panel Today Z00.00 - Encounter for general adult medical examination without abnormal findings Vitamin B12 and Folate Today D64.9 - Anemia, unspecified, Z00.00 - Encounter for general adult medical examination without abnormal findings Methylmalonic Acid Today D64.9 - Anemia, unspecified, Z00.00 - Encounter for general adult medical examination without abnormal findings Homocysteine Today D64.9 - Anemia, unspecified, Z00.00 - Encounter for general adult medical examination without abnormal findings TSH reflex Free T4 Today Z00.00 - Encounter for general adult medical examination without abnormal findings UA and rflx microscopic Today Z00.00 - Encounter for general adult medical examination without abnormal findings Influenza [id number] Immunization Today Z23 - Encounter for immunization TDaP Immunization Today Z23 - Encounter for immunization Referrals Ear/Nose/Throat Referral H72.90 - Unspecified perforation of tympanic membrane, unspecified ear Pulmonology Referral F17.200 - Nicotine dependence, unspecified, uncomplicated Neurology Referral G62.9 - Polyneuropathy, unspecified Dermatology Referral B07.9 - Viral wart, unspecified Medications: New escitalopram oxalate (Lexapro) 20 mg (2 x 10 mg) PO DAILY 60 tabs 3RF
[2025-06-27 10:00] VITALS: BP 130/88; PULSE 57; TEMP 36.1; O2SAT 96; BMI 32.8
== END 2025-06-27 10:51 | disposition home or self-care (01) ==
LOC: HO.HMCH 09:38
PROVIDERS: PCP Internal Medicine; Visit Provider Internal Medicine
DX: H72.92 Unspecified perforation of tympanic membrane, left ear (principal); B07.9 Viral wart, unspecified; M54.50 Low back pain, unspecified; G62.9 Polyneuropathy, unspecified; G89.29 Other chronic pain; M25.561 Pain in right knee; M25.562 Pain in left knee; F17.200 Nicotine dependence, unspecified, uncomplicated; F33.0 Major depressive disorder, recurrent, mild; Z23 Encounter for immunization

== ENCOUNTER → 2025-06-27 09:37 | Outpatient (BNVA) | payer OTHER, SELFPAY | PROVIDERS: PCP Internal Medicine; Visit Provider Internal Medicine | DX: Z00.00 Encounter for general adult medical examination without abnormal findings (principal); Z23 Encounter for immunization; G62.9 Polyneuropathy, unspecified; H72.91 Unspecified perforation of tympanic membrane, right ear; B07.9 Viral wart, unspecified; M54.50 Low back pain, unspecified; G89.29 Other chronic pain; M25.561 Pain in right knee; M25.562 Pain in left knee; F33.0 Major depressive disorder, recurrent, mild; F17.210 Nicotine dependence, cigarettes, uncomplicated | CPT/HCPCS: 90471; 90472; 90656; 90715; 99202 ==

== ENCOUNTER 2025-06-28 06:21 | Outpatient (REF) | payer OTHER, SELFPAY ==
--- NOTE | ~2025-06-28 | XR_ITS ---
EXAMINATION: X-ray bilateral knees CLINICAL INFORMATION: Pain COMPARISON: None TECHNIQUE: AP bilateral knees one view. Right knee 1 view. Left knee 1 view. FINDINGS: Right knee: Moderate medial compartment osteoarthritis. Question patellofemoral joint space narrowing on the flexed lateral view. No significant effusion. No acute fracture or dislocation. Left knee: Mild-moderate medial compartment arthritis. Question patellofemoral joint space narrowing on the partially flexed lateral view. No acute fracture or dislocation. No significant effusion. XR/XR Knee Alexandru 1or 2V IMPRESSION: Right knee: Moderate medial compartment arthritis. Left knee: Mild-moderate medial compartment arthritis. Electronically signed by: Brian Pete MD 06/28/2025 03:37 PM EST
--- NOTE | ~2025-06-28 | XR_ITS ---
EXAMINATION: XR LUMBOSACRAL SPINE CLINICAL INFORMATION: M25.569 - Pain in unspecified knee COMPARISON: None available. TECHNIQUE: Three views of the lumbosacral spine. FINDINGS: Mild L3-4, L4-5 retrolisthesis. Vertebral body heights are maintained. No evidence of acute fracture fracture. Multilevel disc degeneration, including moderate L4-5, mild-moderate L3-4 disc degeneration. Multilevel facet degeneration. No suspicious bony lesion. Bilateral SI joints are intact. No abnormal soft tissue calcification. XR/XR lumbar spine 2-3V IMPRESSION: No acute findings. Lumbar spondylosis as above. Electronically signed by: Brina Pete MD 06/28/2025 03:38 PM EST
[2025-06-28 07:12] LABS: Alanine Aminotransferase 31 U/L (0-40); Albumin Level 4.3 g/dL (3.5-5.0); Alkaline Phosphatase 51 U/L (39-117); Anion Gap 13 (12-20); Aspartate Amino Transferase 32 U/L (5-37); Blood Urea Nitrogen 13 mg/dL (9-16); Calcium 9.6 mg/dL (8.4-10.2); Carbon Dioxide 23 mmol/L (22-29); Chloride 103 mmol/L (96-108); Cholesterol 165 mg/dL (<200); Estimated Glomerular Filt Rate > 60; HDL Cholesterol 35 mg/dL (>40); Iron 81 mcg/dL (45-160); Percent Iron Saturation 24 % (15-50); Potassium 4.4 mmol/L (3.3-5.1); Sodium 135 mmol/L (135-145); Total Iron Binding Capacity 334 mcg/dL (228-428); Total Protein 7.5 g/dL (6.5-8.0); Triglycerides 90 mg/dL (<150); Unsaturated Iron Binding 253 ug/dL
[2025-06-28 07:34] LABS: Folate 8.4 ng/mL (> or = 4.0); Prostate Specific Antigen 0.58 ng/mL (<0.05-4.0); Vitamin B12 600 pg/mL (200-900)
[2025-06-28 07:36] LABS: Reticulocytes Absolute 0.069 X10*6/uL (0.026-0.095)
== END 2025-06-28 06:22 | disposition home or self-care (01) ==
LOC: HO.XRAY 06:21
PROVIDERS: PCP Internal Medicine; Visit Provider Internal Medicine
DX: Z00.00 Encounter for general adult medical examination without abnormal findings (principal); M25.561 Pain in right knee; M25.562 Pain in left knee; D64.9 Anemia, unspecified; M54.50 Low back pain, unspecified
CPT/HCPCS: 36415; 72100; 73560; 80053; 80061; 82306; 82607; 82746; 83036; 83090; 83540; 83921; 84153; 84443; 85045